=== PATIENT | male | born 1960 | race Caucasian/White ===

== ENCOUNTER 2016-12-16 14:55 | Observation (INO) | payer OTHER ==
[2016-12-16] MEDS ORDERED: PHENYTOIN SODI100 M1 PO (15:54)
[2016-12-16] MEDS ORDERED: LEVOTHYROXINE100 MC1 PO (15:55)
[2016-12-16] MEDS ORDERED: FUROSEMIDE40 MG (15:55)
[2016-12-16] MEDS ORDERED: VYTORIN 10 MG-41 TAB PO (15:56)
[2016-12-16] MEDS ORDERED: IBU800 M1 PO (15:57)
[2016-12-16] MEDS ORDERED: POTASSIUM CHLO10 ME7 PO (15:57)
[2016-12-16 17:58] VITALS: BP 154/77
[2016-12-16 18:00] VITALS: BP 154/77
[2016-12-16 22:52] VITALS: BP 124/70
[2016-12-17 03:18] VITALS: BP 116/69
[2016-12-17 06:23] VITALS: BP 114/65
[2016-12-17] MEDS ORDERED: DILANTIN 100MG100 MG PO (10:44)
[2016-12-17 11:08] VITALS: BP 138/92
== END 2016-12-17 11:34 | disposition home or self-care (01) ==
LOC: ED 14:55 → MED/SURG 17:26
PROVIDERS: ADMIT Nurse Practitioner Primary Care
DX: G40.89 Other seizures (principal); E03.9 Hypothyroidism, unspecified; Z91.128 Patient's intentional underdosing of medication regimen for other reason; R74.8 Abnormal levels of other serum enzymes
CPT/HCPCS: G0378; J2060; J7030; Q2009

== ENCOUNTER 2021-12-17 14:55 | Emergency (ER) | payer BC ==
[~2021-12-17] VITALS: Ht 172.7 cm; Wt 99.5 kg
[~2021-12-17 14:55] MED LIST: DILANTIN 100MG100 MG PO; FUROSEMIDE40 MG; IBU800 M1 PO; LEVOTHYROXINE100 MC1 PO; PHENYTOIN SODI100 M1 PO; POTASSIUM CHLO10 ME7 PO; VYTORIN 10 MG-41 TAB PO
[2021-12-17] MEDS ORDERED: EZETIMIBE10 M1 PO (15:21)
[2021-12-17] MEDS ORDERED: CELECOXIB100 M1 PO (15:21)
[2021-12-17] MEDS ORDERED: SYNTHROID RP0.1 MG PO (15:22)
[2021-12-17] MEDS ORDERED: SIMVASTATIN40 M1 PO (15:22)
[2021-12-17 16:10] LABS: ALBUMIN 4.2 g/dL (3.4-4.8); POTASSIUM 3.8 mmol/L (3.5-5.1); SODIUM 141 mmol/L (136-145)
[2021-12-17 16:11] LABS: CALCIUM 9.1 mg/dL (8.3-10.5)
[2021-12-17 16:12] LABS: GLUCOSE 87 mg/dL (75-110)
[2021-12-17 16:13] LABS: CARBON DIOXIDE 27 mmol/L (23-31)
[2021-12-17 16:14] LABS: TOTAL BILIRUBIN 0.3 mg/dL (0.2-1.2)
[2021-12-17 16:15] LABS: ALCOHOL IN-HOUSE < 10 mg/dL (<10)
[2021-12-17 16:17] LABS: BASO # 0.03 K/mm3 (0.02-0.10); EOS # 0.08 K/mm3 (0.04-0.40); HEMATOCRIT 40.3 % (42.0-52.0); HEMOGLOBIN 13.1 g/dL (13.5-18.0); LYMPH# 1.52 K/mm3 (1.50-4.00); MEAN CELL VOLUME 102 fl (78-100); MEAN CORPUSCULAR HEMOGLOBIN 33 pg (27-31); MEAN CORPUSCULAR HGB CONC 33 g/dL (33-37); MEAN PLATELET VOLUME 8.1 fl (7.4-10.4); MONO # 0.53 K/mm3 (0.20-0.80); NEU # 5.91 K/mm3 (1.40-6.50); PLATELET COUNT 254 K/mm3 (130-400); RED BLOOD COUNT 3.97 M/mm3 (4.20-5.60); RED CELL DISTRIBUTION WIDTH 14.5 % (11.5-14.5); WHITE BLOOD COUNT 8.1 K/mm3 (4.8-10.8)
[2021-12-17 16:18] LABS: AST-SGOT 35 U/L (5-34)
[2021-12-17 16:19] LABS: ALT/SGPT 40 U/L (0-55)
[2021-12-17 16:37] LABS: TROPONIN-I < 0.030 ng/mL (<0.030)
[2021-12-17 16:46] LABS: URINE APPEARANCE HAZY; URINE BILIRUBIN NEGATIVE (NEGATIVE); URINE BLOOD 250 ery/uL (NEGATIVE); URINE COLOR YELLOW; URINE GLUCOSE NEGATIVE (NEGATIVE); URINE KETONE NEGATIVE (NEGATIVE); URINE LEUKOCYTE ESTERASE NEGATIVE (NEGATIVE); URINE MUCUS PRESENT (NOT PRESENT); URINE NITRATE NEGATIVE (NEGATIVE); URINE PROTEIN(semi-quant) TRACE (NEGATIVE); URINE UROBILINOGEN NORMAL (NORMAL)
[2021-12-17] MEDS ORDERED: DILANTIN 100MG100 MG PO (17:10)
[2021-12-17 17:30] VITALS: BP 145/79
== END 2021-12-17 17:30 | disposition home or self-care (01) ==
LOC: ED 14:55
PROVIDERS: Nurse Practitioner
DX: R56.9 Unspecified convulsions (principal); R53.81 Other malaise; R53.83 Other fatigue

== ENCOUNTER → 2024-11-01 | Outpatient (CLI) | payer MEDICARE, OTHER ==
[~2024-11-01] MED LIST changes: +CELECOXIB100 M1 PO; +EZETIMIBE10 M1 PO; +SIMVASTATIN40 M1 PO; +SYNTHROID RP0.1 MG PO
== END ==
LOC: RAD 09:48
DX: M19.011 Primary osteoarthritis, right shoulder (principal)